=== PATIENT | female | born 1965 | race Caucasian/White ===

== ENCOUNTER 2021-09-27 20:51 | Inpatient (IN) | payer MEDICARE, MEDICAID ==
[~2021-09-27] VITALS: Ht 170.2 cm; Wt 89.5 kg
[~2021-09-27 20:51] MED LIST: BUSPIRONE HCL15 MG PO; CELEXA 40MG TAB40 MG PO; CLEOCIN300 MG PO; LISINOPRIL 20MG20 MG PO; NEURONTIN300 MG PO; PRILOSEC20 MG PO; TENORMIN25 MG PO; ZOCOR40 MG PO
[2021-09-27 21:29] LABS: BASOPHIL 0.3 % (0-2); EOSINOPHIL 0.4 % (0-5); HCT 38.7 % (37.0-47.0); HGB 12.3 g/dl (12.5-16.0); INR 1.09 (0.9-1.2); LYMPHOCYTE 16.5 % (15-48); MCH 28.2 pg (25.0-31.0); MCHC 31.8 g/dL (32.0-36.0); MCV 88.8 fL (78.0-100.0); MONOCYTE 7.1 % (0-12); MPV 10.8 fL (6.0-9.5); NEUTROPHIL 75.4 % (41-80); NRBC 0; PLT 241 K/uL (150-400); PROTHROMBIN TIME 13.5 SECONDS (11.8-13.4); PTT 29.2 SECONDS (24.4-34.7); RBC 4.36 M/uL (4.20-5.40); WBC 11.2 K/uL (4.0-10.5)
[2021-09-27 21:38] LABS: ALBUMIN 3.3 g/dL (3.4-5.0); ALKALINE PHOSHATASE 80 U/L (46-116); ALT 20 U/L (14-59); AST 15 U/L (15-37); BILIRUBIN - TOTAL 0.6 mg/dL (0.2-1.0); BUN 11 mg/dL (7-18); BUN/CREAT RATIO (CALC) 14.1 RATIO; CHLORIDE 99 mmol/L (98-107); CO2 (BICARBONATE) 28 mmol/L (21-32); CREATININE 0.78 mg/dL (0.51-0.95); GLOBULIN (CALCULATION) 3.6 g/dL; GLUCOSE 134 mg/dL (74-106); POTASSIUM 3.9 mmol/L (3.5-5.1); TOTAL PROTEIN 6.9 g/dL (6.4-8.2)
[2021-09-28 04:19] LABS: BILIRUBIN NEGATIVE (NEGATIVE); BLOOD TRACE-INTACT Ery/uL (NEGATIVE); CLARITY CLEAR (CLEAR); COLOR YELLOW (YELLOW); GLUCOSE (U) NORMAL (NORMAL); LEUKOCYTES NEGATIVE Leu/uL (NEGATIVE); NITRITE NEGATIVE (NEGATIVE); PROTEIN NEGATIVE (NEGATIVE)
[2021-09-28 04:25] LABS: URINARY RBC RARE
[2021-09-28 04:26] LABS: BACTERIA TRACE
[2021-09-28] MEDS ORDERED: VITAMIN D31250 MC1 PO (12:52)
[2021-09-28] MEDS ORDERED: ATENOLOL25 MG PO (12:54)
[2021-09-28] MEDS ORDERED: BUSPIRONE HCL15 MG PO (12:55)
[2021-09-28] MEDS ORDERED: PRAVACHOL20 MG PO (12:55)
[2021-09-28] MEDS ORDERED: BUSPAR5 MG PO (12:57)
[2021-09-28] MEDS ORDERED: CELEXA20 MG PO (12:58)
[2021-09-28] MEDS ORDERED: ASPIRIN EC81 MG PO (13:00)
[2021-09-28] MEDS ORDERED: COZAAR100 MG PO (13:00)
[2021-09-28] MEDS ORDERED: BREO ELLIPTA 11 EACH INH (13:01)
--- NOTE | 2021-09-28 14:23 | NUR ---
MET WITH PT. SHE IS CURRENTLY ON O2. SHE DOES NOT USE OXYGEN AT HOME. PT IS INDEPENDENT AND DOES NOT USE ANY DME. SHE HAS FAMILY SUPPORT TO ASSIST HER.
--- NOTE | 2021-09-29 23:24 | NUR ---
PATIENT REQUESTED NOT TO BE WOKEN AT MIDNIGHT FOR STAFF TO OBTAIN VITALS.
[2021-10-01 06:18] LABS: BASOPHIL 0.2 % (0-2); EOSINOPHIL 0 % (0-5); HCT 36.8 % (37.0-47.0); HGB 11.6 g/dl (12.5-16.0); LYMPHOCYTE 13.4 % (15-48); MCH 28.5 pg (25.0-31.0); MCHC 31.5 g/dL (32.0-36.0); MCV 90.4 fL (78.0-100.0); MONOCYTE 3.2 % (0-12); MPV 11.3 fL (6.0-9.5); NEUTROPHIL 81.8 % (41-80); NRBC 0; PLT 263 K/uL (150-400); RBC 4.07 M/uL (4.20-5.40); RDW 13.6 % (11.5-14.0); WBC 5.6 K/uL (4.0-10.5)
[2021-10-01 06:35] LABS: CREATININE 0.64 mg/dL (0.51-0.95)
--- NOTE | 2021-10-01 10:08 | NUR ---
REMOVED 0.5L NC FROM PT. WHEN REASSESSED, PT WAS 90-91% ON ROOM AIR.
[2021-10-01] MEDS ORDERED: PREDNISONE 20MG20 MG PO (13:11)
[2021-10-01] MEDS ORDERED: DUONEB 2.5-0.5M1 AMP INH (13:11)
[2021-10-01] MEDS ORDERED: AZITHROMYCIN250 MG PO (13:11)
[2021-10-01] MEDS ORDERED: CEFDINIR300 MG PO (13:11)
--- NOTE | 2021-10-01 13:43 | NUR ---
pt discharged home with oxygen, all personal belongings, and discharge instructions. pt verbalized understanding of d/c instructions. IV x2 removed with no s/s infection. catheter tip intact x2. Discharged via private vehicle with friend.
[2021-10-03] MEDS ORDERED: AZITHROMYCIN250 MG PO (10:39)
[2021-10-03] MEDS ORDERED: DUONEB 2.5-0.5M1 AMP INH (10:39)
[2021-10-03] MEDS ORDERED: PREDNISONE 20MG20 MG PO (10:39)
[2021-10-03] MEDS ORDERED: CEFDINIR300 MG PO (10:39)
== END 2021-10-01 13:42 | disposition home or self-care (01) | DRG 190 ==
LOC: FER 20:51 → FMS 09-28 09:18
PROVIDERS: Emergency Medicine; ADMIT Internal Medicine
DX: J44.1 Chronic obstructive pulmonary disease with (acute) exacerbation (principal); J18.9 Pneumonia, unspecified organism; R91.1 Solitary pulmonary nodule; F17.210 Nicotine dependence, cigarettes, uncomplicated; I10 Essential (primary) hypertension; Z20.822 Contact with and (suspected) exposure to COVID-19; Z28.310 Unvaccinated for COVID-19; E78.5 Hyperlipidemia, unspecified; E11.9 Type 2 diabetes mellitus without complications; G47.33 Obstructive sleep apnea (adult) (pediatric); F41.9 Anxiety disorder, unspecified; Z86.010 Personal history of colon polyps; Z88.2 Allergy status to sulfonamides; Z82.49 Family history of ischemic heart disease and other diseases of the circulatory system; Z98.890 Other specified postprocedural states; Z90.711 Acquired absence of uterus with remaining cervical stump; Z98.51 Tubal ligation status; Z79.899 Other long term (current) drug therapy; Z79.82 Long term (current) use of aspirin; Z99.81 Dependence on supplemental oxygen
CPT/HCPCS: 36415; 36600; 71045; 71275; 80048; 80053; 81001; 82803; 84484; 85025; 85379; 85610; 85730; 93005; 94640; G0378; J0456; J0696; J1170; J1650; J2405; J2930; J7050; Q9967; U0002